=== PATIENT | female | born 1970 | race Caucasian/White ===

== ENCOUNTER 2017-07-10 16:25 | Emergency (ER) | payer OTHER ==
[2017-07-10 16:39] VITALS: BP 193/102
[2017-07-10] MEDS ORDERED: LIDOCAINE 2%-EPI 1:100000 20 ML MDV ONE (16:49)
[2017-07-10] MEDS ORDERED: SODIUM BICARBONATE ABBOJECT 50 MEQ/50 ML SYRINGE ONE (16:49)
--- NOTE | 2017-07-10 16:57 | ED Physician Documentation ---
PD HPI SKIN - Stated complaint Stated Complaint: RED BUMP ON CHIN - Chief complaint Chief Complaint: Wound - History obtained from History obtained from: Patient - History of Present Illness Timing - onset: Other (Type II diabetic with painful tender lump on the right chin for about 5 days without fevers.) Review of Systems Constitutional: denies: Fever, Chills, Fatigue Throat: reports: Reviewed and negative Cardiac: reports: Reviewed and negative Respiratory: reports: Reviewed and negative PD PAST MEDICAL HISTORY - Past Medical History Past Medical History: Yes Cardiovascular: Congestive heart failure Respiratory: None Neuro: None Endocrine/Autoimmune: Type 2 diabetes GI: None APARTMENT RENTAL AGENT: None : None HEENT: None Derm: None - Past Surgical History Past Surgical History: Yes /APARTMENT RENTAL AGENT: Tubal ligation Cardiovascular: Pacemaker - Present Medications Home Medications: Ambulatory Orders Medication Instructions Recorded Confirmed Aspirin 81 mg PO DAILY 10/05/14 07/10/17 Carvedilol 1.5 tab PO BID 10/05/14 07/10/17 Cholecalciferol (Vitamin D3) 1,000 PO DAILY 10/05/14 10/05/14 [Vitamin D] Losartan Potassium 100 mg PO DAILY 10/05/14 07/10/17 Metformin HCl [Metformin HCl ER] 1,000 mg PO BID 10/05/14 07/10/17 Potassium Chloride 10 meq PO DAILY 10/05/14 07/10/17 Spironolactone 50 mg PO DAILY 10/05/14 07/10/17 Clindamycin [Cleocin] 300 mg PO Q6H 7 Days capsule 07/10/17 Insulin Aspart [NovoLOG] 07/10/17 Insulin Glargine [Lantus Solostar] 07/10/17 - Allergies Allergies/Adverse Reactions: Allergies Allergy/AdvReac Type Severity Reaction Status Date / Time felodipine [From Plendil] Allergy Itching Verified 07/10/17 16:31 - Social History Does the pt smoke?: No Smoking Status: Never smoker Does the pt drink ETOH?: Yes Does the pt have substance abuse?: No - Immunizations Immunizations are current?: Yes - POLST Patient has POLST: No PD ED PE NORMAL - Vitals Vital signs reviewed: Yes - General General: Alert and oriented X 3, No acute distress - HEENT HEENT: Other (1 cm pointed abscess in the submental area left side) - Neck Neck: Supple, no meningeal sign, No bony TTP - Neuro Neuro: Alert and oriented X 3, Normal speech - Psych Psych: Normal mood, Normal affect Results - Vitals Vitals: Vital Signs - 24 hr 07/10/17 16:33 Temperature 36.5 C Heart Rate 82 Respiratory 18 Rate Blood Pressure 193/102 H O2 Saturation 98 Oxygen O2 Source Room air Procedures - Abscess I&D (location) chin Preparation: Chlorhexadine, Lidocaine 1% (with bicarb) Incision: Incised with scalpel, Purulent drainage, Loculations broken, Culture obtained Other: Pt tolerated well, Dressing applied, Antibiotic prescribed Departure - Departure Disposition: Home, Self Care Clinical Impression: Abscess Condition: Good Record reviewed to determine appropriate education?: Yes Instructions: ED Abscess IandD Prescriptions: Clindamycin [Cleocin] 300 mg PO Q6H 7 Days capsule Comments: Follow-up with your doctor in 2-3 days for wound check. Return if worse. We are performing a wound culture, the results should be done in 48-72 hours. If antibiotic change is necessary we will call you. Return if worse in the meantime, especially if he develop increased pain, fevers, cannot keep down the medication. Otherwise follow-up with your physician in approximately 2-3 days. Your blood pressure was elevated today on check into the emergency department. This does not mean that you have hypertension, it is a common phenomenon to come to the emergency department and have elevated blood pressure. I recommend that she see your primary care physician within the week to have it rechecked when you are feeling better.
== END 2017-07-10 17:11 | disposition home or self-care (01) ==
LOC: ED 16:25
DX: L02.01 Cutaneous abscess of face (principal); E11.9 Type 2 diabetes mellitus without complications; Z79.4 Long term (current) use of insulin; Z95.0 Presence of cardiac pacemaker
CPT/HCPCS: 10060; 87070; 87205; 99283

== ENCOUNTER 2018-08-17 15:19 | Emergency (ER) | payer OTHER ==
--- NOTE | 2018-08-17 16:14 | XRAY Report ---
Reason: rt foot poain swelling, tripped on dog Procedure Date: 08/17/2018 Accession Number: [id number] / [id number] Procedure: XR - Foot 3 View RT CPT Code: FULL RESULT: EXAM: RIGHT FOOT RADIOGRAPHY EXAM DATE: 08/17/2018 04:00 PM. CLINICAL HISTORY: Right foot pain, swelling, tripped on dog yesterday. COMPARISON: None. TECHNIQUE: 3 views. FINDINGS: Bones: Large osteophyte calcaneal insertion plantar fascia. No fractures or bone lesions. Joints: Moderate degenerative changes dorsal aspect of the naviculocuneiform joint. No subluxations. Soft Tissues: Small amount of dystrophic calcifications calcaneal insertion Achilles tendon. Moderate forefoot edema.. IMPRESSION: No acute bony abnormality. RADIA
--- NOTE | 2018-08-17 16:27 | ED Physician Documentation ---
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: None : None HEENT: None Derm: None - Past Surgical History Past Surgical History: Yes /INFORMATION TECHNOLOGY COORDINATOR: Tubal ligation Cardiovascular: Pacemaker - Present Medications Home Medications: Ambulatory Orders Medication Instructions Recorded Confirmed Aspirin 81 mg PO DAILY 10/05/14 07/10/17 Carvedilol 1.5 tab PO BID 10/05/14 07/10/17 Cholecalciferol (Vitamin D3) 1,000 PO DAILY 10/05/14 10/05/14 [Vitamin D] Losartan Potassium 100 mg PO DAILY 10/05/14 07/10/17 Metformin HCl [Metformin HCl ER] 1,000 mg PO BID 10/05/14 07/10/17 Potassium Chloride 10 meq PO DAILY 10/05/14 07/10/17 Spironolactone 50 mg PO DAILY 10/05/14 07/10/17 Clindamycin [Cleocin] 300 mg PO Q6H 7 Days capsule 07/10/17 Insulin Aspart [NovoLOG] 07/10/17 Insulin Glargine [Lantus Solostar] 07/10/17 - Allergies Allergies/Adverse Reactions: Allergies Allergy/AdvReac Type Severity Reaction Status Date / Time felodipine [From Plendil] Allergy Itching Verified 08/17/18 15:45 - Social History Does the pt smoke?: No Smoking Status: Never smoker Does the pt drink ETOH?: Yes Does the pt have substance abuse?: No - Immunizations Immunizations are current?: Yes - POLST Patient has POLST: No PD ED PE NORMAL - Vitals Vital signs reviewed: Yes - Extremities Extremities: Other (R foot mod swelling and TTP mid foot medial > lateral MSV intact no open wound, no gross deformity) Results - Vitals Vitals: Vital Signs - 24 hr 08/17/18 15:35 Temperature 36.5 C Heart Rate 90 Respiratory 18 Rate Blood Pressure 178/101 H O2 Saturation 97 Oxygen O2 Source Room air - Rads (name of study) foot Radiology: See rad report (no acute bony abnormality) Departure - Departure Disposition: 01 Home, Self Care Clinical Impression: Right foot sprain Qualifiers: Encounter type: initial encounter Qualified Code(s): S93.601A - Unspecified sprain of right foot, initial encounter Condition: Good Instructions: ED Sprain Foot Follow-Up: Olga Brock DO [Primary Care Provider] - Comments: The xray was OK - no broken bones It looks like you have badly sprained your foot Recommend you use the crutches to decrease weight bearing stress for the next few days And RAHAT wrap ice and elevation to decrease pain and swelling Motrin and tylenol for the pain Also please get your blood pressure rechecked - it was high today Forms: Activity restrictions
[2018-08-17 16:58] VITALS: BP 174/98
== END 2018-08-17 16:58 | disposition home or self-care (01) ==
LOC: ED 15:19
DX: S93.601A Unspecified sprain of right foot, initial encounter (principal); E11.9 Type 2 diabetes mellitus without complications; Z79.82 Long term (current) use of aspirin; Z79.84 Long term (current) use of oral hypoglycemic drugs; W01.0XXA Fall on same level from slipping, tripping and stumbling without subsequent striking against object, initial encounter
CPT/HCPCS: 99282; 99283

== ENCOUNTER 2020-08-04 23:08 | Outpatient (CLI) | payer OTHER | END 2020-08-04 23:09 | disposition critical access hospital (66) | LOC: EMS 23:08 | PROVIDERS: ATTEND Surgery | DX: R41.0 Disorientation, unspecified (principal); R53.83 Other fatigue; Z04.3 Encounter for examination and observation following other accident | CPT/HCPCS: A0425; A0429 ==

== ENCOUNTER 2020-08-04 23:27 | Emergency (ER) | payer OTHER ==
[2020-08-04 23:35] VITALS: BP 145/113
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
== END 2020-08-05 01:32 | disposition home or self-care (01) ==
LOC: EDUNIT# → ED 23:27
DX: S50.811A Abrasion of right forearm, initial encounter (principal); W19.XXXA Unspecified fall, initial encounter; Y92.007 Garden or yard of unspecified non-institutional (private) residence as the place of occurrence of the external cause; F10.129 Alcohol abuse with intoxication, unspecified; Z79.82 Long term (current) use of aspirin; E11.9 Type 2 diabetes mellitus without complications; Z79.4 Long term (current) use of insulin; Z86.79 Personal history of other diseases of the circulatory system
CPT/HCPCS: 80053; 80320; 83690; 85025; 99281; 99283

== ENCOUNTER 2021-06-20 08:00 | Outpatient (CLI) | payer OTHER | END 2021-06-20 23:59 | disposition home or self-care (01) | LOC: LAB.N 08:00 | PROVIDERS: ATTEND Family Medicine | DX: R05 Cough (principal); Z20.822 Contact with and (suspected) exposure to COVID-19 ==

== ENCOUNTER 2022-02-14 06:19 | Day surgery (SDC) | payer OTHER ==
[2022-02-14] MEDS ORDERED: PHENYLEPHRINE 2.5% OPHTH 2 ML DROPS ONE (06:25)
[2022-02-14] MEDS ORDERED: KETOROLAC 0.45% OPHTH DROPS ONE (06:25)
[2022-02-14] MEDS ORDERED: CYCLOPENTOLATE 1% OPHTH DROPS 2 ML ONE (06:26)
[2022-02-14] MEDS ORDERED: PROPARACAINE 0.5% OPHTH DROPS 15 ML ONE (06:26)
[2022-02-14] MEDS ORDERED: LACTATED RINGERS 1,000 ML IV ONE (06:37)
[2022-02-14] MEDS ORDERED: PROPARACAINE 0.5% OPHTH DROPS 15 ML RIGHTEYE ONE (06:43)
[2022-02-14] MEDS ORDERED: TRIAMCIN/MOXIFLOX OPHTHALMIC 0.6 ML VIAL IO ONE ×2 (07:02→07:38)
[2022-02-14] MEDS ORDERED: EPINEPHrine 1 MG/ML AMP ONE (07:02)
[2022-02-14] MEDS ORDERED: BSS/LIDOCAINE/EPINEPHRINE 1 ML VIAL ONE (07:03)
[2022-02-14] MEDS ORDERED: BRIMONIDINE 0.2% OPHTH DROPS 5 ML ONE (07:03)
[2022-02-14] MEDS ORDERED: TIMOLOL 0.5% OPHTH DROPS ONE (07:03)
[2022-02-14] MEDS ORDERED: PROPOFOL 500 MG/50 ML 0 MG/0 ML VIAL ONE (07:07)
[2022-02-14] MEDS ORDERED: MIDAZOLAM 2 MG/2 ML VIAL ONE (07:18)
[2022-02-14] MEDS ORDERED: fentaNYL 100 MCG/2 ML VIAL ONE (07:18)
--- NOTE | 2022-02-14 07:21 | ANESTHESIA ---
Pre-Anesthesia VS, & Labs - Diagnosis R cataract - Procedure R phacoIOL Vital Signs: Temp Pulse Resp BP Pulse Ox 36.5 C 77 17 128/74 100 02/14/22 06:43 02/14/22 06:43 02/14/22 06:43 02/14/22 06:43 02/14/22 06:43 Height: 5 ft 3 in Weight (kg): 105.6 kg Body Mass Index: 41.2 BMI Classification: Morbidly Obese - NPO >8 hours - Is Patient ?: No - Lab Results Current Lab Results: Laboratory Tests 02/14/22 06:52: POC Whole Bld Glucose 313 H Home Medications and Allergies Home Medications: Ambulatory Orders Digoxin 02/13/22 Empagliflozin [Jardiance] 10 mg PO DAILY 02/13/22 Furosemide [Lasix] 40 mg PO DAILY 02/13/22 Simvastatin [Zocor] 02/13/22 Aspirin 81 mg PO DAILY 10/05/14 Carvedilol 1.5 tab PO BID 10/05/14 Cholecalciferol (Vitamin D3) [Vitamin D] 1,000 units PO DAILY 10/05/14 Losartan Potassium 100 mg PO DAILY 10/05/14 Metformin HCl [Metformin HCl ER] 1,000 mg PO BID 10/05/14 Potassium Chloride 10 meq PO DAILY 10/05/14 Spironolactone 50 mg PO DAILY 10/05/14 Insulin Aspart [NovoLOG] 48 units SQ TID 07/10/17 Insulin Glargine [Lantus Solostar] 50 units SQ BID 07/10/17 Digoxin 02/13/22 Empagliflozin [Jardiance] 10 mg PO DAILY 02/13/22 Furosemide [Lasix] 40 mg PO DAILY 02/13/22 Simvastatin [Zocor] 02/13/22 Allergies/Adverse Reactions: Allergies Allergy/AdvReac Type Severity Reaction Status Date / Time felodipine [From Plendil] Allergy Itching Verified 08/04/20 23:31 Anes History & Medical History - Anesthetic History Anesthesia Complications: reports: No previous complications Family history of Anesthesia Complications: Denies Family history of Malignant Hyperthermia: Denies - Medical History Cardiovascular: reports: Congestive heart failure, Other (pacemaker/AICD) Pulmonary: reports: None Gastrointestinal: reports: None Urinary: reports: None Musculoskeletal: reports: None Endocrine/Autoimmune: reports: Type 2 diabetes Skin: reports: None Smoking Status: Never smoker Psychosocial: reports: Alcohol History of Cancer?: No - Surgical History Cardiothoracic: reports: Pacemaker, AICD Gynecologic: reports: Tubal ligation, Other Exam General: Alert, Oriented x3, Cooperative Dental: WNL Mouth Openin Fingerbreadth Neck Mobility: Normal Mallampati classification: II Thyromental Distance: 4-6 cm Respiratory: Lungs clear Cardiovascular: Other (paced) Plan Anesthesia Type: MAC Consent for Procedure(s) Verified and Reviewed: Yes Code Status: Attempt Resuscitation ASA classification: 3-Severe systemic disease Is this case an emergency?: No
[2022-02-14] MEDS ORDERED: EPINEPHrine 1 MG/ML AMP IR ONE (07:36)
[2022-02-14] MEDS ORDERED: BRIMONIDINE 0.2% OPHTH DROPS 5 ML OPTH ONE (07:36)
[2022-02-14] MEDS ORDERED: TIMOLOL 0.5% OPHTH DROPS OPTH ONE (07:37)
[2022-02-14] MEDS ORDERED: BSS/LIDOCAINE/EPINEPHRINE 1 ML SYRINGE IO ONE (07:38)
[2022-02-14] MEDS ORDERED: VANCOMYCIN OPHTHALMI 8MG/0.8ML 8 MG/0.8 ML SYRINGE IO ONE (07:39)
[2022-02-14] MEDS ORDERED: PROPARACAINE 0.5% OPHTH DROPS 15 ML EACHEYE ONE (07:39)
--- NOTE | 2022-02-14 08:07 | OPERATIVE REPORT ---
Operative Report - Other Other Information/Narrative: Date of Surgery: 02/14/22 Preop Dx: Visually significant cataract right eye. This was the first cataract surgery. Postop Dx: Same Procedure: Phacoemulsification with posterior chamber intraocular lens implant right eye Surgeon: Dr. Kyle Mitchell Anesthesia: Monitored anesthesia care Complications: None Operative Indications: This is a 51-year-old F with progressive vision loss in the right eye due to 2+ nuclear sclerotic, 1+ cortical, and 2+ posterior subcapsular cataract. Best corrected visual acuity was 20/80 with glare to light perception vision in the right eye. Indications for surgery were: - Overall decrease in vision - Difficulty seeing words on a computer screen - Difficulty reading - Difficulty seeing words, closed captions, or game scores on TV - Difficulty seeing street signs - Difficulty driving in low light or at night - Difficulty driving at night because of headlights from other vehicles - Difficulty with glare or bright lights in any situation The patient was consented at length concerning the risks and benefits of cataract surgery after which the patient expressed a desire to proceed with surgery. Operative Procedure: The patient was taken into OR#3 and placed under monitored anesthesia care. A surgical time-out was conducted confirming correct patient, correct procedure, and correct surgical site. The patient was given topical anesthesia and then prepped and draped in the usual sterile fashion. The eye was entered at the 6 and 3 oclock positions. Intracameral Shugarcaine was injected into the anterior chamber followed by a dispersive viscoelastic. A continuous-tear curvilinear capsulorhexis was performed. The nucleus was hydrodissected and phacoemulsified. The cortex was evacuated using automated infusion and aspiration. A cohesive viscoelastic was injected into the capsular bag and a 22.5 diopter intraocular lens was inserted into the bag. Infusion and aspiration were used to evacuate the viscoelastic materials from the eye. The wounds were hydrated and the eye inflated to physiologic pressure using balanced salt solution. Approximately 0.25ml of a mixture of triamcinolone and moxifloxacin was injected trans-sclerally into the vitreous in the inferotemporal quadrant using a 30 gauge cannula. An additional 0.55ml of a mixture of triamcinolone, moxifloxacin, and vancomycin was injected subconjunctivally in the superior quadrant for infection and inflammation prophylaxis. Wound integrity was checked with Weck-Shanda sponges. The patient was taken from the operating room in good condition and given post-op instructions.
[2022-02-14] MEDS ORDERED: LACTATED RINGERS 850 ML IV ONE (08:09)
[2022-02-14 08:11] VITALS: BP 144/80
--- NOTE | 2022-02-14 12:54 | ANESTHESIA POST OP EVALUATION ---
Anesthesia Post Eval - Post Anesthesia Eval Vitals: Last Vital Signs Temp 36.4 C L 02/14/22 08:09 Pulse 72 02/14/22 08:09 Resp 16 02/14/22 08:09 BP 144/80 H 02/14/22 08:09 Pulse Ox 98 02/14/22 08:09 CV Function Including HR & BP: Stable Pain Control: Satisfactory Nausea & Vomiting: Negative Mental Status: Baseline Respiratory Status: Airway Patent Hydration Status: Satisfactory Anesthesia Complications: None
== END 2022-02-14 06:20 | disposition home or self-care (01) ==
LOC: SDS 06:19
PROVIDERS: ATTEND Ophthalmology
DX: E11.36 Type 2 diabetes mellitus with diabetic cataract (principal); H25.811 Combined forms of age-related cataract, right eye; Z79.4 Long term (current) use of insulin; Z79.84 Long term (current) use of oral hypoglycemic drugs; E66.01 Morbid (severe) obesity due to excess calories; Z68.41 Body mass index [BMI] 40.0-44.9, adult; Z95.0 Presence of cardiac pacemaker
CPT/HCPCS: 66984; A9270; J3490; J7120

== ENCOUNTER 2024-03-11 16:38 | Outpatient (CLI) | payer OTHER | END 2024-03-11 23:59 | disposition critical access hospital (66) | LOC: EMS 16:38 | DX: M25.551 Pain in right hip (principal); M79.604 Pain in right leg | CPT/HCPCS: A0425; A0427 ==

== ENCOUNTER 2024-03-11 17:02 | Emergency (ER) | payer OTHER ==
--- NOTE | 2024-03-11 17:12 | ED Physician Documentation ---
History of Present Illness - Stated complaint Stated Complaint: R HIP PX - History obtained from History obtained from: Patient, EMS - Additonal information Additional information: The patient is brought to the emergency department by EMS for chief complaint of right hip pain. She states that about 3 days ago, she went to stand up and felt a pop in her right hip area. She states that she had a sudden pain and that although she was able to bear weight, it hurt. The patient states that she stayed home from work the next day and tried to rest it and felt a bit better the following day. She went to work for about half the day, which was yesterday, but by the time her shift was over, she was fairly sore and had to lay down. She laid down all night and this morning, it hurts about she was not able to walk on it. She finally ended up calling EMS. The patient has no history of injury to the hip but does have a history of sciatica. The patient notes that pain has been shooting down her right leg with certain movements since the injury. 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 Patient states the pacemaker was placed when she was 38 years old. Patient states all of that has been stable, however. 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 GATHERER: Tubal ligation, Other Cardiovascular: Pacemaker, AICD - Present Medications Home Medications: Ambulatory Orders Medication Instructions Recorded Confirmed Aspirin 81 mg PO DAILY 10/05/14 03/14/22 Carvedilol 1.5 tab PO BID 10/05/14 03/14/22 Cholecalciferol (Vitamin D3) 1,000 units PO DAILY 10/05/14 03/14/22 [Vitamin D] Losartan Potassium 100 mg PO DAILY 10/05/14 03/14/22 Metformin HCl [Metformin HCl ER] 1,000 mg PO BID 10/05/14 03/14/22 Potassium Chloride 10 meq PO DAILY 10/05/14 03/14/22 Spironolactone 50 mg PO DAILY 10/05/14 03/14/22 Insulin Aspart [NovoLOG] 48 units SQ TID 07/10/17 03/14/22 Insulin Glargine [Lantus Solostar] 50 units SQ BID 07/10/17 03/14/22 Digoxin 62.5 mcg PO DAILY 02/13/22 03/14/22 Empagliflozin [Jardiance] 10 mg PO DAILY 02/13/22 03/14/22 Furosemide [Lasix] 40 mg PO DAILY 02/13/22 03/14/22 Simvastatin [Zocor] 40 mg PO DAILY 02/13/22 03/14/22 Cyclobenzaprine [Flexeril] 10 mg PO TID PRN #20 tablet 03/11/24 HYDROcod/ACETAM 5/325 [House 5/325] 1 - 2 tablet PO Q6H PRN #14 tablet 03/11/24 Ibuprofen [Motrin] 800 mg PO Q8H PRN #30 tablet 03/11/24 predniSONE [Deltasone] 10 mg PO [id number] #42 tab 03/11/24 - Allergies Allergies/Adverse Reactions: Allergies Allergy/AdvReac Type Severity Reaction Status Date / Time felodipine [From Plendil] Allergy Itching Verified 03/11/24 17:12 - Social History Does the pt smoke?: No Smoking Status: Never smoker Does the pt drink ETOH?: Yes Does the pt have substance abuse?: No - Immunizations Immunizations are current?: Yes - POLST Patient has POLST: No PD ED PE NORMAL - Vitals Vital signs reviewed: Yes - General General: Alert and oriented X 3, No acute distress, Well developed/nourished, Other (Morbid obesity) - HEENT HEENT: Atraumatic, EOMI, Moist mucous membranes - Neck Neck: Supple, no meningeal sign - Cardiac Cardiac: RRR, No murmur, Strong equal pulses - Respiratory Respiratory: No respiratory distress - Abdomen Abdomen: Soft, Non tender, Non distended - Derm Derm: Normal color, Warm and dry, No rash - Extremities Extremities: No deformity, Normal ROM s pain (Passively and actively, with the exception of actively letting the leg back down to the bed.), No edema, No calf tenderness / cord, Other (Tenderness palpation just posterior to the right hip joint extending towards the SI joint.) - Neuro Neuro: No motor deficit, No sensory deficit, Other (Otherwise grossly intact) - Psych Psych: Normal mood, Normal affect Results - Vitals Vitals: Oxygen O2 Source Room air PD Medical Decision Making - ED course Complexity details: reviewed results, re-evaluated patient, considered differential, d/w patient ED course: The patient was worked up with x-ray series of the right hip and pelvis and treated symptomatically with Dilaudid and Decadron. She had already been given Toradol en-route. The x-rays were unremarkable. The patient was feeling better after symptomatic treatment and was deemed stable for discharge home. We have discussed the usual indications for follow-up and return. Departure - Departure Disposition: Home, Self Care Clinical Impression: Sprain of right hip Qualifiers: Encounter type: initial encounter Qualified Code(s): S73.101A - Unspecified sprain of right hip, initial encounter Sciatica Qualifiers: Laterality: right Qualified Code(s): M54.31 - Sciatica, right side Condition: Stable Instructions: ED Sprain Hip, ED Sciatica Prescriptions: predniSONE [Deltasone] 10 mg PO [id number] #42 tab Cyclobenzaprine [Flexeril] 10 mg PO TID PRN #20 tablet PRN Reason: Spasms Ibuprofen [Motrin] 800 mg PO Q8H PRN #30 tablet PRN Reason: PAIN &/OR FEVER HYDROcod/ACETAM 5/325 [House 5/325] 1 - 2 tablet PO Q6H PRN #14 tablet PRN Reason: Pain Comments: Your x-ray series looks good. There is no evidence of any broken bones. You most likely sprained your hip joint and there is probably some ongoing i nflammation that is causing inflammation and spasm, any of which can exert pressure on your sciatic nerve. Soft tissue injuries can take several weeks to heal but generally, symptoms started getting better after the first week. If you notice that by the end of the second week and things do not really seem to be improving at all, you should make an appoint with your primary doctor's office to discuss the possibility of having MRI done. You should continue to use assistance in the form of a walker when you are up and walking. You may bear weight as tolerated but try to avoid any more strenuous activities involving your right leg. Prescriptions for the medications we have discussed have been electronically transmitted to [facility] pharmacy in [place]. Your next dose of steroids will be due tomorrow but the other medications you may take as needed according to instructions. Forms: Activity restrictions Discharge Date/Time: 03/11/24 19:05
[2024-03-11] MEDS: HYDROmorphone 1 MG/ML CARPUJECT IM STA (17:38)
[2024-03-11] MEDS: DEXAMETHASONE 10 MG/ML VIAL IM STA (17:38)
--- NOTE | 2024-03-11 18:00 | XRAY Report ---
PROCEDURE: Hip w/Pelvis 2-3V RT INDICATIONS: R hip injury/pain TECHNIQUE: 2 views of the hip were acquired. COMPARISON: None. FINDINGS: Bones: No fractures or dislocations. No suspicious bony lesions. Soft tissues: No suspicious soft tissue calcifications or masses. IMPRESSION: No acute bony abnormality. If there remains a high clinical concern for fracture, including inability to bear weight, consider cross-sectional imaging to exclude an occult fracture. Reviewed by: Wade Ashby MD on 03/11/2024 5:59 PM PDT Approved by: Wade Ashby MD on 03/11/2024 5:59 PM PDT Station ID: [id number]
[2024-03-11 19:14] VITALS: BP 157/84; O2SAT 94
== END 2024-03-11 19:05 | disposition home or self-care (01) ==
LOC: EDUNIT# → ED 17:02
DX: S73.101A Unspecified sprain of right hip, initial encounter (principal); X58.XXXA Exposure to other specified factors, initial encounter; M54.31 Sciatica, right side; I50.9 Heart failure, unspecified; E11.9 Type 2 diabetes mellitus without complications; Z95.0 Presence of cardiac pacemaker; Z79.4 Long term (current) use of insulin; Z79.84 Long term (current) use of oral hypoglycemic drugs; Z79.899 Other long term (current) drug therapy; E66.01 Morbid (severe) obesity due to excess calories
CPT/HCPCS: 73502; 96372; 99283; J1170